=== PATIENT | female | born 1975 | race Hispanic/Latino ===

== ENCOUNTER 2019-04-21 17:08 | Emergency (ER) | payer OTHER ==
[2019-04-21 18:07] LABS: APPEARANCE,URINE Clear (CLEAR); BILIRUBIN,URINE Negative (NEGATIVE); COLOR,URINE Yellow (YELLOW); GLUCOSE, URINE (UA) Negative (NEGATIVE); KETONES,URINE Negative (NEGATIVE); LEUKOCYTE ESTERASE ,URINE Moderate (NEGATIVE); NITRATE,URINE Negative (NEGATIVE); OCCULT BLOOD,URINE Negative (NEGATIVE); PH,URINE 5.5 (5.0-8.0); PROTEIN,URINE Negative (NEGATIVE)
[2019-04-21 18:09] LABS: HCG,QUAL RESULT NEGATIVE (NEGATIVE)
[2019-04-21 18:17] LABS: BACTERIA,URINE Moderate /HPF (None Seen); RBC,URINE 0-1 /HPF (0-1); TRICHOMONAS,URINE Few /LPF (None Seen)
[2019-04-21] MEDS ORDERED: KETOROLAC TROMETHAMINE 60 MG/2 ML VIAL ONE (18:22)
[2019-04-21] MEDS ORDERED: ORPHENADRINE CITRATE 30 MG/ML ML ONE (18:22)
== END 2019-04-21 19:00 | disposition home or self-care (01) ==
LOC: EDH 17:08
DX: S39.012A Strain of muscle, fascia and tendon of lower back, initial encounter (principal); N39.0 Urinary tract infection, site not specified; X58.XXXA Exposure to other specified factors, initial encounter; Y93.89 Activity, other specified; Y92.89 Other specified places as the place of occurrence of the external cause; Y99.8 Other external cause status
CPT/HCPCS: 72100; 81001; 81025; 96372 ×2; 99285; J1885; J2360

== ENCOUNTER → 2022-03-16 | Outpatient (CLI) | payer OTHER ==
[~2022-03-16] MED LIST: ASCO500T19 PO
[2022-03-16 09:00] LABS: BASOPHILS % (AUTO) 1.1 % (0.0-5.0); EOSINOPHILS % (AUTO) 3.4 % (0.0-8.0); LYMPHOCYTES % (AUTO) 18.7 % (21.0-51.0); MEAN CORPUSCULAR HEMOGLOBIN 15.1 pg (27.0-33.0); MEAN CORPUSCULAR HGB CONC 24.5 g/dL (32.0-36.0); MEAN CORPUSCULAR VOLUME 61.5 fL (79-99); MONOCYTES % (AUTO) 6.5 % (3.0-13.0); NEUTROPHILS % (AUTO) 69.7 % (40.0-77.0); NUCLEATED RED BLOOD CELLS 0.5 % (0.0-0.19); PLATELET COUNT (AUTO) 359 K/uL (130-400); RED BLOOD CELL COUNT(AUTO) 3.12 MIL/uL (4.00-5.50); RED CELL DISTRIBUTION WIDTH 22.5 % (11.0-15.5); WHITE BLOOD COUNT (AUTO) 6.2 K/uL (4.8-10.8)
[2022-03-16 09:17] LABS: HEMOGLOBIN A1C 5.2 % (4.0-6.0)
[2022-03-16 09:18] LABS: HEMATOCRIT 19.2 % (36-48)
== END | disposition home or self-care (01) ==
LOC: LAB 07:56
PROVIDERS: ATTEND Obstetrics & Gynecology
DX: Z01.419 Encounter for gynecological examination (general) (routine) without abnormal findings (principal); N92.0 Excessive and frequent menstruation with regular cycle
CPT/HCPCS: 36415; 83001; 83002; 83036; 84146; 84443; 85025

== ENCOUNTER 2022-03-18 15:56 | Observation (INO) | payer OTHER ==
[~2022-03-18] VITALS: Ht 160 cm; Wt 73.9 kg
[2022-03-18 17:48] VITALS: BP 121/64
[2022-03-18] MEDS ORDERED: LACTATED RINGERS 1000ML 1,000 ML IV SCH (18:00)
[2022-03-18] MEDS ORDERED: ACETAMINOPHEN 500 MG TABLET PO PRN (18:00)
[2022-03-18 18:23] LABS: MEAN CORPUSCULAR HEMOGLOBIN 15.1 pg (27.0-33.0); MEAN CORPUSCULAR HGB CONC 24.6 g/dL (32.0-36.0); MEAN CORPUSCULAR VOLUME 61.3 fL (79-99); NUCLEATED RED BLOOD CELLS 0.2 % (0.0-0.19); RED BLOOD CELL COUNT(AUTO) 2.92 MIL/uL (4.00-5.50); RED CELL DISTRIBUTION WIDTH 22.6 % (11.0-15.5); WHITE BLOOD COUNT (AUTO) 8.7 K/uL (4.8-10.8)
[2022-03-18 18:28] LABS: HEMATOCRIT 17.9 % (36-48)
[2022-03-18] MEDS ORDERED: ASCO500T19 PO (18:37)
[2022-03-18 19:45] VITALS: BP 124/60
[2022-03-18 23:10] VITALS: BP 126/73
[2022-03-19 04:10] VITALS: BP 121/72
[2022-03-19 07:05] VITALS: BP 136/76
[2022-03-19 12:00] VITALS: BP 163/84
[2022-03-19 15:45] VITALS: BP 122/62
[2022-03-19 15:51] LABS: HEMATOCRIT 28.8 % (36-48); MEAN CORPUSCULAR HEMOGLOBIN 20.3 pg (27.0-33.0); MEAN CORPUSCULAR HGB CONC 29.2 g/dL (32.0-36.0); MEAN CORPUSCULAR VOLUME 69.7 fL (79-99); NUCLEATED RED BLOOD CELLS 1.6 % (0.0-0.19); RED BLOOD CELL COUNT(AUTO) 4.13 MIL/uL (4.00-5.50); RED CELL DISTRIBUTION WIDTH 26.6 % (11.0-15.5); WHITE BLOOD COUNT (AUTO) 6.9 K/uL (4.8-10.8)
== END 2022-03-19 17:00 | disposition home or self-care (01) ==
LOC: EDH 15:56 → WSH 15:57 → EDH 16:21
PROVIDERS: ADMIT Obstetrics & Gynecology; ATTEND Obstetrics & Gynecology
DX: D50.9 Iron deficiency anemia, unspecified (principal); N92.0 Excessive and frequent menstruation with regular cycle
CPT/HCPCS: 36415 ×2; 36430 ×2; 76856; 85027 ×2; 86850; 86900; 86901; 86923; 96360; 96361; G0378 ×15; J7120; P9016 ×3

== ENCOUNTER 2022-04-09 05:53 | Inpatient (IN) | payer OTHER ==
[2022-04-06 11:35] LABS: BASOPHILS % (AUTO) 1.2 % (0.0-5.0); EOSINOPHILS % (AUTO) 5.3 % (0.0-8.0); HEMATOCRIT 30.8 % (36-48); LYMPHOCYTES % (AUTO) 23.3 % (21.0-51.0); MEAN CORPUSCULAR HEMOGLOBIN 23.4 pg (27.0-33.0); MEAN CORPUSCULAR HGB CONC 28.9 g/dL (32.0-36.0); MEAN CORPUSCULAR VOLUME 81.1 fL (79-99); MONOCYTES % (AUTO) 4.6 % (3.0-13.0); NEUTROPHILS % (AUTO) 65.4 % (40.0-77.0); PLATELET COUNT (AUTO) 397 K/uL (130-400); WHITE BLOOD COUNT (AUTO) 5.6 K/uL (4.8-10.8)
[2022-04-08] MEDS: CEFAZOLIN SODIUM 1 GM VIAL IVP SCH (06:00)
[2022-04-08 08:25] VITALS: BP 148/56
[~2022-04-09] VITALS: Ht 165.1 cm; Wt 73.6 kg
[2022-04-09] VITALS (23 sets, daily range): BP systolic 119–184; BP diastolic 46–81
[~2022-04-09 05:53] MED LIST changes: -ASCO500T19 PO; +FERS325 PO; +FOLI200T12 PO; +LACTATED RINGERS 1000ML 1,000 ML IV ONE; +NAPR-1000 PO
[2022-04-09] MEDS ORDERED: ONDANSETRON 4MG INJ ONE (06:41)
[2022-04-09] MEDS ORDERED: MIDAZOLAM HCL 1 MG/ML 2ML VIAL ONE (06:41)
[2022-04-09] MEDS ORDERED: OXYTOCIN 10 USP UNITS/ML ONE (06:42)
[2022-04-09] MEDS ORDERED: PROPOFOL 10 MG/ML 20ML VIAL IV ONE (06:49)
[2022-04-09] MEDS ORDERED: ROCURONIUM 10MG/1ML SYR 10 MG/ML ML ONE (06:49)
[2022-04-09] MEDS ORDERED: FENTANYL CITRATE PF 50 MCG/1 ML 2ML VIAL ONE (06:50)
[2022-04-09] MEDS ORDERED: KETAMINE 50MG/ML SYRINGE 50 MG/ML DISP.SYRIN IV ONE (07:19)
[2022-04-09] MEDS ORDERED: CEFAZOLIN SODIUM 2 GM VIAL IV ONE (07:20)
[2022-04-09] MEDS ORDERED: MAGNESIUM SULFATE 1 GM/2 ML VIAL ONE (07:20)
[2022-04-09] MEDS ORDERED: FENTANYL CITRATE PF 50 MCG/1 ML 5ML AMP IV ONE (07:47)
[2022-04-09] MEDS ORDERED: EPHEDRINE SULFATE 50 MG/ML AMPULE ONE (08:15)
[2022-04-09] MEDS ORDERED: LIDOCAINE PF 100MG/5ML (2%) SYRINGE 5ML ONE (08:15)
[2022-04-09] MEDS ORDERED: GLYCOPYRROLATE 1 MG/5 ML SYRINGE ONE (08:20)
[2022-04-09] MEDS ORDERED: NEOSTIGMINE 5MG/5ML SYR IV ONE (08:20)
[2022-04-09] MEDS ORDERED: KETOROLAC 30MG VIAL (30MG/ML) ONE (08:22)
[2022-04-09] MEDS ORDERED: MEPERIDINE-PF 25 MG/ML SYG ONE ×2 (08:45→08:54)
[2022-04-09] MEDS ORDERED: HYDROMORPHONE 1 MG INJ ONE (09:07)
[2022-04-09] MEDS ORDERED: MEPERIDINE-PF 75 MG/ML SYG ONE (10:03)
[2022-04-09] MEDS ORDERED: BISACODYL 10 MG SUPP.RECT RC PRN (10:30)
[2022-04-09] MEDS ORDERED: ONDANSETRON 4MG INJ IVP PRN (10:30)
[2022-04-09] MEDS ORDERED: IBUPROFEN 600 MG TABLET PO PRN (10:30)
[2022-04-09] MEDS ORDERED: PROMETHAZINE HCL 25 MG/ML 1ML AMPULE IM PRN (10:30)
[2022-04-09] MEDS ORDERED: DOCUSATE SODIUM 100 MG CAP PO PRN (10:30)
[2022-04-09] MEDS ORDERED: ACETAMINOPHEN WITH CODEINE 1 TAB TAB PO PRN (10:30)
[2022-04-09] MEDS: PROMETHAZINE HCL 25 MG/ML 1ML AMPULE IM PRN ×2 (13:37→19:55)
[2022-04-09] MEDS: MEPERIDINE-PF 75 MG/ML SYG IM PRN ×2 (13:38→19:56)
[2022-04-09] MEDS: CEFAZOLIN SODIUM 1 GM VIAL IVP SCH ×3 (15:03→23:19)
[2022-04-09] MEDS: DEXTROSE 5 %-0.45 % NACL 1,000 ML IV PRN (19:55)
[2022-04-10 04:06] VITALS: BP 142/84
[2022-04-10] MEDS: PROMETHAZINE HCL 25 MG/ML 1ML AMPULE IM PRN (04:20)
[2022-04-10] MEDS: MEPERIDINE-PF 75 MG/ML SYG IM PRN (04:24)
[2022-04-10] MEDS: DEXTROSE 5 %-0.45 % NACL 1,000 ML IV PRN (04:30)
[2022-04-10 06:53] LABS: HEMATOCRIT 22.2 % (36-48); MEAN CORPUSCULAR HEMOGLOBIN 24.2 pg (27.0-33.0); MEAN CORPUSCULAR HGB CONC 29.3 g/dL (32.0-36.0); MEAN CORPUSCULAR VOLUME 82.5 fL (79-99); PLATELET COUNT (AUTO) 363 K/uL (130-400); RED BLOOD CELL COUNT(AUTO) 2.69 MIL/uL (4.00-5.50); WHITE BLOOD COUNT (AUTO) 9.5 K/uL (4.8-10.8)
[2022-04-10 07:32] VITALS: BP 156/91
[2022-04-10] MEDS ORDERED: HYDROCODONE/ACETAMINOPHEN 5/325 MG TAB PO PRN (08:00)
[2022-04-10] MEDS: SIMETHICONE 80 MG TAB.CHEW PO PRN ×2 (08:10→11:32)
[2022-04-10 11:06] VITALS: BP 171/83
[2022-04-10 11:07] VITALS: BP 166/94
[2022-04-10] MEDS ORDERED: ACETAMINOPHEN WITH CODEINE 1 TAB TAB ONE (11:30)
[2022-04-10] MEDS ORDERED: IBUPROFEN 800 MG TAB PO PRN (12:00)
[2022-04-10] MEDS ORDERED: ACETAMINOPHEN WITH CODEINE 1 TAB TAB PO PRN (12:00)
[2022-04-10 16:22] VITALS: BP 143/85
[2022-04-10 17:22] LABS: HEMATOCRIT 30.8 % (36-48); MEAN CORPUSCULAR HEMOGLOBIN 25.8 pg (27.0-33.0); MEAN CORPUSCULAR HGB CONC 30.5 g/dL (32.0-36.0); MEAN CORPUSCULAR VOLUME 84.4 fL (79-99); RED BLOOD CELL COUNT(AUTO) 3.65 MIL/uL (4.00-5.50); WHITE BLOOD COUNT (AUTO) 10.8 K/uL (4.8-10.8)
== END 2022-04-10 18:45 | disposition home or self-care (01) | DRG 743 ==
LOC: OBSVTOIN 05:53 → DAHIP 05:53 → EDSTATUS 07:00 → WSH 10:10
PROVIDERS: ADMIT Obstetrics & Gynecology; ATTEND Obstetrics & Gynecology
PROC: 0UT20ZZ Resection of Bilateral Ovaries, Open Approach (ICD-10-PCS; 2022-04-09)
PROC: 0UT70ZZ Resection of Bilateral Fallopian Tubes, Open Approach (ICD-10-PCS; 2022-04-09)
PROC: 0UT90ZZ Resection of Uterus, Open Approach (ICD-10-PCS; principal; 2022-04-09 07:45)
PROC: 30233N1 Transfusion of Nonautologous Red Blood Cells into Peripheral Vein, Percutaneous Approach (ICD-10-PCS; 2022-04-10)
DX: D25.9 Leiomyoma of uterus, unspecified (principal); D50.0 Iron deficiency anemia secondary to blood loss (chronic); Z20.822 Contact with and (suspected) exposure to COVID-19
CPT/HCPCS: 36415; 36430; 84703; 85025; 85027; 86850; 86900; 86901; 86923; 87635; A4344; G0378; J0690; J1170; J1885; J2001; J2175; J2250; J2405; J2550; J2590; J2704; J2710; J3010; J3475; J3490; J7120; P9016

== ENCOUNTER 2022-08-06 12:21 | Emergency (ER) | payer OTHER ==
[~2022-08-06] VITALS: Ht 162.6 cm; Wt 72.6 kg
[~2022-08-06 12:21] MED LIST changes: -LACTATED RINGERS 1000ML 1,000 ML IV ONE
[2022-08-06 12:29] VITALS: BP 143/82
[2022-08-06] MEDS ORDERED: DEXA6TAB7 PO (12:58)
[2022-08-06] MEDS ORDERED: NAPR-1180 PO (12:58)
[2022-08-06] MEDS ORDERED: DEXAMETHASONE 4 MG TAB PO SCH (13:00)
== END 2022-08-06 13:26 | disposition home or self-care (01) ==
LOC: EDH 12:21
DX: G56.01 Carpal tunnel syndrome, right upper limb (principal); Z79.899 Other long term (current) drug therapy; Z79.52 Long term (current) use of systemic steroids; Z79.1 Long term (current) use of non-steroidal anti-inflammatories (NSAID)
CPT/HCPCS: 99283; 73110; 29125; J8540